=== PATIENT | male | born 1995 | race Caucasian/White ===

== ENCOUNTER 2018-06-26 14:12 | Outpatient (CLI) | payer OTHER, SELFPAY ==
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
== END 2018-06-26 14:13 ==
PROVIDERS: PCP Physician Assistant Medical; Visit Provider Nurse Practitioner Family
DX: M25.532 Pain in left wrist (principal); S66.912A Strain of unspecified muscle, fascia and tendon at wrist and hand level, left hand, initial encounter; X50.3XXA Overexertion from repetitive movements, initial encounter; Y99.0 Civilian activity done for income or pay
CPT/HCPCS: 99203; L3908

== ENCOUNTER 2018-07-02 11:22 | Outpatient (CLI) | payer OTHER, SELFPAY ==
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
== END 2018-07-02 11:23 ==
PROVIDERS: PCP Physician Assistant Medical; Visit Provider Nurse Practitioner Family
DX: M25.532 Pain in left wrist (principal); M77.02 Medial epicondylitis, left elbow; M77.12 Lateral epicondylitis, left elbow
CPT/HCPCS: 99214

== ENCOUNTER 2018-07-10 12:47 | Outpatient (CLI) | payer OTHER, SELFPAY ==
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
== END 2018-07-10 12:48 ==
PROVIDERS: PCP Physician Assistant Medical; Visit Provider Nurse Practitioner Family
DX: M25.532 Pain in left wrist (principal); M77.12 Lateral epicondylitis, left elbow
CPT/HCPCS: 99214